=== PATIENT | male | born 1980 | race Two or more races ===

== ENCOUNTER 2016-08-25 19:11 | Emergency (ER) | payer SELFPAY ==
--- NOTE | 2016-08-25 19:28 | PHYS DOC ---
Past Medical History Past Medical History: Depression Past Surgical History: No Surgical History Alcohol Use: Heavy Additional Information: has 8 beers a day Drug Use: None Adult General Chief Complaint Chief Complaint: CHEST WALL PAIN HPI HPI Patient is a 36 year old male who presents with left-sided intermittent chest discomfort over the last month. He states that the pain is very intermittent as a pulsating sensation in might last for an hour and then it resolves by itself. He states sometimes he feels short of breath with this sometimes it radiates into the left jaw resolves by itself. Nothing makes it, on her go away. He does smoke cigarettes about a pack per day. His father just the age of 60 from heart attack. He states today his symptoms got worse. Review of Systems Review of Systems Constitutional: Denies fever or chills [] Eyes: Denies change in visual acuity, redness, or eye pain [] HENT: Denies nasal congestion or sore throat [] Respiratory: Denies cough or shortness of breath [] Cardiovascular: No additional information not addressed in HPI [] GI: Denies abdominal pain, nausea, vomiting, bloody stools or diarrhea [] : Denies dysuria or hematuria [] Musculoskeletal: Denies back pain or joint pain [] Integument: Denies rash or skin lesions [] Neurologic: Denies headache, focal weakness or sensory changes [] Endocrine: Denies polyuria or polydipsia [] Allergies Allergies Allergies Coded Allergies Type Severity Reaction Last Updated Verified No Known Drug Allergies 08/25/16 No Physical Exam Physical Exam Constitutional: Well developed, well nourished, no acute distress, non-toxic appearance. [] HENT: Normocephalic, atraumatic, bilateral external ears normal, oropharynx moist, no oral exudates, nose normal. [] Eyes: PERRLA, EOMI, conjunctiva normal, no discharge. [] Neck: Normal range of motion, no tenderness, supple, no stridor. [] Cardiovascular:Heart rate regular rhythm, no murmur [] Lungs & Thorax: Bilateral breath sounds clear to auscultation [] Abdomen: Bowel sounds normal, soft, no tenderness, no masses, no pulsatile masses. [] Skin: Warm, dry, no erythema, no rash. [] Back: No tenderness, no CVA tenderness. [] Extremities: No tenderness, no cyanosis, no clubbing, ROM intact, no edema. [] Neurologic: Alert and oriented X 3, normal motor function, normal sensory function, no focal deficits noted. [] Psychologic: Affect normal, judgement normal, mood normal. [] Current Patient Data Vital Signs Vital Signs Date Time Temp Pulse Resp B/P Pulse Ox O2 Delivery O2 Flow Rate FiO2 08/25/16 20:30 70 16 127/75 98 Room Air 08/25/16 19:15 98.2 98.2 Lab Values Laboratory Tests Test 08/25/16 19:30 08/25/16 20:28 White Blood Count 7.7x10^3/uL (4.0-11.0) Red Blood Count 4.78x10^6/uL (4.30-5.70) Hemoglobin 15.8g/dL (13.0-17.5) Hematocrit 46.8% (39.0-53.0) Mean Corpuscular Volume 98fL (79-100) Mean Corpuscular Hemoglobin 33pg (25-35) Mean Corpuscular Hemoglobin Concent 34g/dL (31-37) Red Cell Distribution Width 13.0% (11.5-14.5) Platelet Count 244x10^3/uL (140-400) Neutrophils (%) (Auto) 61% (31-73) Lymphocytes (%) (Auto) 31% (24-48) Monocytes (%) (Auto) 5% (0-9) Eosinophils (%) (Auto) 3% (0-3) Basophils (%) (Auto) 1% (0-3) Neutrophils # (Auto) 4.7x10^3uL (1.8-7.7) Lymphocytes # (Auto) 2.4x10^3/uL (1.0-4.8) Monocytes # (Auto) 0.3x10^3/uL (0.0-1.1) Eosinophils # (Auto) 0.2x10^3/uL (0.0-0.7) Basophils # (Auto) 0.1x10^3/uL (0.0-0.2) Prothrombin Time 12.5SEC (11.7-14.0) Prothrombin Time INR 1.0 (0.8-1.1) D-Dimer (Anne Marie) 0.30ug/mlFEU (0.00-0.50) Sodium Level 142mmol/L (136-145) Potassium Level 4.0mmol/L (3.5-5.1) Chloride Level 104mmol/L (98-107) Carbon Dioxide Level 30mmol/L (21-32) Anion Gap 8 (6-14) Blood Urea Nitrogen 21mg/dL (8-26) Creatinine 1.0mg/dL (0.7-1.3) Estimated GFR (Cockcroft-Gault) 85.5 Glucose Level 141mg/dL (70-99) H Calcium Level 9.3mg/dL (8.5-10.1) Magnesium Level 2.3mg/dL (1.8-2.4) Creatine Kinase 185U/L (39-308) Creatine Kinase MB (Mass) 2.5ng/mL (0.0-3.6) Creatine Kinase MB Relative Index 1.4% (0-4) Troponin I Quantitative < 0.017ng/mL (0.000-0.055) II-Arr-E-Type Natriuretic Peptide 23pg/mL (0-124) Lipase 274U/L (73-393) Urine Collection Type Void Urine Color Yellow Urine Clarity Clear Urine pH 6.0 Urine Specific [place] 1.020 Urine Protein Negativemg/dL (NEG-TRACE) Urine Glucose (UA) Negativemg/dL (NEG) Urine Ketones (Stick) Negativemg/dL (NEG) Urine Blood Negative (NEG) Urine Nitrite Negative (NEG) Urine Bilirubin Negative (NEG) Urine Urobilinogen Dipstick 1.0mg/dL (0.2 mg/dL) Urine Leukocyte Esterase Negative (NEG) Urine RBC 0/HPF (0-2) Urine WBC Occ/HPF (0-4) Urine Squamous Epithelial Cells Few/LPF Urine Bacteria 0/HPF (0-FEW) Urine Mucus Mod/LPF Laboratory Tests 08/25/16 19:30 Laboratory Tests 08/25/16 19:30 EKG EKG EKG shows normal sinus rhythm with a rate of [address] elevations or T-wave inversions, QTC 451 ms, normal axis, as interpreted by me. Radiology/Procedures Radiology/Procedures One view chest x-ray did not show any focal consolidations, pneumothorax, widened mediastinum or other concerns as interpreted by me. Impressions: Chest pain Tobacco abuse Course & Med Decision Making Course & Med Decision Making Pertinent Labs and Imaging studies reviewed. (See chart for details) EKG, labs, chest x-ray did not show any acute abnormalities. His pain is very intermittent and I do recommend to have a stress test completed. The patient does not want to stay any assigned out AMA. I did give him a referral to cardiology clinic and will have his girlfriend call to make arrangements for him to do a stress test. He is instructed return back to ER if his pain gets worse she has shortness of breath or any other concerns. His girlfriend did act as an project crew worker in this process and the patient does understand some [place]. Dragon Disclaimer Dragon Disclaimer This electronic medical record was generated, in whole or in part, using a voice recognition dictation system. Departure Departure Impression: Primary Impression: Chest pain Disposition: 01 HOME, SELF-CARE Condition: STABLE Referrals: JARAD LYMAN MD Patient Instructions: Chest Pain (Nonspecific) Additional Instructions: His EKG, chest x-ray and labs do not show any acute abnormalities. I recommend that he be admitted to the hospital and have a stress test however he does not want to stay. He will need to have a stress test as an outpatient. Please call the cardiology office and schedule appointment. She develops any other chest pain, worsening pain, difficulty breathing or has any other concerns please return back to emergency department. DIEUDONNE MILLER MD Aug 25, 2016 19:27
[2016-08-25 19:45] LABS: BASO # 0.1 x10^3/uL (0.0-0.2); BASO % 1 % (0-3); EOS % 3 % (0-3); HEMATOCRIT 46.8 % (39.0-53.0); HEMOGLOBIN 15.8 g/dL (13.0-17.5); LYMPH # 2.4 x10^3/uL (1.0-4.8); LYMPH % 31 % (24-48); MEAN CORPUSCULAR HEMOGLOBIN 33 pg (25-35); MEAN CORPUSCULAR HGB CONC 34 g/dL (31-37); MEAN CORPUSCULAR VOLUME 98 fL (79-100); MONO % 5 % (0-9); NEUT % 61 % (31-73); PLATELET COUNT 244 x10^3/uL (140-400); RED BLOOD COUNT 4.78 x10^6/uL (4.30-5.70); WHITE BLOOD COUNT 7.7 x10^3/uL (4.0-11.0)
[2016-08-25 19:55] LABS: PROTHROMBIN TIME PATIENT 12.5 SEC (11.7-14.0)
[2016-08-25 20:01] LABS: CALCIUM 9.3 mg/dL (8.5-10.1); GFR 85.5; MAGNESIUM 2.3 mg/dL (1.8-2.4)
[2016-08-25 20:13] LABS: CKMB INDEX 1.4 % (0-4); CKMB MASS 2.5 ng/mL (0.0-3.6)
[2016-08-25 20:36] LABS: BILIRUBIN,URINE NEGATIVE (NEG); GLUCOSE,URINE NEGATIVE (NEG); NITRITE,URINE NEGATIVE (NEG); PROTEIN,URINE NEGATIVE (NEG-TRACE)
[2016-08-25 20:43] LABS: RBC,URINE 0 /HPF (0-2)
[2016-08-25 20:44] LABS: BACTERIA,URINE 0 /HPF (0-FEW); SQUAMOUS EPITHELIAL CELL,UR FEW /LPF; WBC,URINE OCC /HPF (0-4)
[2016-08-25 21:20] VITALS: BP 115/74
--- NOTE | 2016-08-26 06:32 | EKG ---
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
--- NOTE | 2016-08-26 07:24 | RAD ---
Exam: AP portable chest. History: Shortness of breath. Comparison: None. Findings: The heart and mediastinal structures are within normal limits for size. Lungs are without infiltrate. No pneumothorax or pleural effusion is appreciated. Impression: 1. No acute cardiopulmonary process.
== END 2016-08-25 21:25 | disposition home or self-care (01) ==
LOC: ER 19:11
DX: R07.89 Other chest pain (principal); F17.210 Nicotine dependence, cigarettes, uncomplicated; F32.9 Major depressive disorder, single episode, unspecified; F10.10 Alcohol abuse, uncomplicated; Z82.49 Family history of ischemic heart disease and other diseases of the circulatory system
CPT/HCPCS: 36415; 71010; 80048; 81001; 82553; 83690; 83735; 83880; 84484; 85027; 85379; 85610; 93005; 99285-25

== ENCOUNTER 2016-08-27 17:21 | Emergency (ER) | payer SELFPAY ==
[2016-08-27 18:17] LABS: BASO # 0.1 x10^3/uL (0.0-0.2); BASO % 1 % (0-3); EOS % 1 % (0-3); HEMATOCRIT 44.3 % (39.0-53.0); LYMPH # 1.4 x10^3/uL (1.0-4.8); LYMPH % 19 % (24-48); MEAN CORPUSCULAR HEMOGLOBIN 33 pg (25-35); MEAN CORPUSCULAR HGB CONC 34 g/dL (31-37); MEAN CORPUSCULAR VOLUME 98 fL (79-100); MONO % 5 % (0-9); NEUT % 74 % (31-73); PLATELET COUNT 235 x10^3/uL (140-400); RED BLOOD COUNT 4.54 x10^6/uL (4.30-5.70); RED CELL DISTRIBUTION WIDTH 12.7 % (11.5-14.5); WHITE BLOOD COUNT 7.5 x10^3/uL (4.0-11.0)
[2016-08-27 18:26] LABS: CALCIUM 9.1 mg/dL (8.5-10.1); CREATININE 0.9 mg/dL (0.7-1.3); GFR 96.6; POTASSIUM 3.9 mmol/L (3.5-5.1)
[2016-08-27 19:29] VITALS: BP 128/83
[2016-08-27] MEDS ORDERED: HYDR25TA PO (19:32)
--- NOTE | 2016-08-27 19:33 | PHYS DOC ---
Past Medical History Past Medical History: Anxiety, Depression Past Surgical History: No Surgical History Alcohol Use: Heavy Drug Use: None Adult General Chief Complaint Chief Complaint: CHEST PAIN HPI HPI Patient is a 36 year old male who presents with return of symptoms he was evaluated here for 2 days. He specifically denies chest pain today. He notes getting home from work and feeling jaw pain/tingling associated with bilateral hand numbness/tingling and dyspnea. He notes these symptoms last for approx 2 hours. They have been occurring intermittently for some weeks. They usually occur when he is at home and trying to rest. He is currently asymptomatic. He denies exertional symptoms, cough, hemoptysis, palpitations, lightheadedness, headache, vision changes, back pain, abdominal pain, nausea or vomiting, fever or chills. Review of Systems Review of Systems Constitutional: Denies fever or chills [] Eyes: Denies change in visual acuity, redness, or eye pain [] HENT: Denies nasal congestion or sore throat [] Respiratory: Denies cough or shortness of breath [] Cardiovascular: No additional information not addressed in HPI [] GI: Denies abdominal pain, nausea, vomiting, bloody stools or diarrhea [] : Denies dysuria or hematuria [] Musculoskeletal: Denies back pain or joint pain [] Integument: Denies rash or skin lesions [] Neurologic: Denies headache, focal weakness or sensory changes [] Endocrine: Denies polyuria or polydipsia [] Allergies Allergies Allergies Coded Allergies Type Severity Reaction Last Updated Verified No Known Drug Allergies 08/25/16 No Physical Exam Physical Exam Constitutional: Well developed, well nourished, no acute distress, non-toxic appearance. [] HENT: Normocephalic, atraumatic, bilateral external ears normal, oropharynx moist, no oral exudates, nose normal. [] Eyes: PERRLA, EOMI. [] Neck: Normal range of motion, supple. [] Cardiovascular:Heart rate regular rhythm [] Lungs & Thorax: Bilateral breath sounds clear to auscultation [] Abdomen: Bowel sounds normal, soft, no tenderness. [] Skin: Warm, dry, no erythema, no rash. [] Back: Normal ROM. [] Extremities: No tenderness, ROM intact, no edema. [] Neurologic: Alert and oriented X 3, normal motor function, normal sensory function, no focal deficits noted. [] Psychologic: Affect normal, judgement normal, mood normal. [] Current Patient Data Vital Signs Vital Signs Date Time Temp Pulse Resp B/P Pulse Ox O2 Delivery O2 Flow Rate FiO2 08/27/16 17:35 98.6 69 14 129/83 100 Room Air 98.6 Lab Values Laboratory Tests Test 08/27/16 17:59 White Blood Count 7.5x10^3/uL (4.0-11.0) Red Blood Count 4.54x10^6/uL (4.30-5.70) Hemoglobin 15.0g/dL (13.0-17.5) Hematocrit 44.3% (39.0-53.0) Mean Corpuscular Volume 98fL (79-100) Mean Corpuscular Hemoglobin 33pg (25-35) Mean Corpuscular Hemoglobin Concent 34g/dL (31-37) Red Cell Distribution Width 12.7% (11.5-14.5) Platelet Count 235x10^3/uL (140-400) Neutrophils (%) (Auto) 74% (31-73) H Lymphocytes (%) (Auto) 19% (24-48) L Monocytes (%) (Auto) 5% (0-9) Eosinophils (%) (Auto) 1% (0-3) Basophils (%) (Auto) 1% (0-3) Neutrophils # (Auto) 5.5x10^3uL (1.8-7.7) Lymphocytes # (Auto) 1.4x10^3/uL (1.0-4.8) Monocytes # (Auto) 0.4x10^3/uL (0.0-1.1) Eosinophils # (Auto) 0.1x10^3/uL (0.0-0.7) Basophils # (Auto) 0.1x10^3/uL (0.0-0.2) Sodium Level 140mmol/L (136-145) Potassium Level 3.9mmol/L (3.5-5.1) Chloride Level 104mmol/L (98-107) Carbon Dioxide Level 29mmol/L (21-32) Anion Gap 7 (6-14) Blood Urea Nitrogen 15mg/dL (8-26) Creatinine 0.9mg/dL (0.7-1.3) Estimated GFR (Cockcroft-Gault) 96.6 Glucose Level 91mg/dL (70-99) Calcium Level 9.1mg/dL (8.5-10.1) Troponin I Quantitative < 0.017ng/mL (0.000-0.055) Laboratory Tests 08/27/16 17:59 Laboratory Tests 08/27/16 17:59 EKG EKG EKG as interpreted by me as normal sinus rhythm, rate 72, no ST-T changes, normal intervals, no ectopy Course & Med Decision Making Course & Med Decision Making Pertinent Labs and Imaging studies reviewed. (See chart for details) Workup is unremarkable, including workup from 2 days ago. Discussed his symptoms are atypical for cardiac chest pain, however he should continue with stress test that was scheduled. Discussed his symptoms could be related to anxiety/panic attacks. Discussed symptomatically management. Return precautions given. He and family understand and agree with plan. Dragon Disclaimer Dragon Disclaimer This electronic medical record was generated, in whole or in part, using a voice recognition dictation system. Departure Departure Impression: Primary Impression: Atypical chest pain Disposition: 01 HOME, SELF-CARE Condition: STABLE Referrals: NO PCP (PCP) Patient Instructions: Anxiety and Panic Attacks, [id number] Additional Instructions: You should still follow-up for your stress test. However, your symptoms could be due to panic attacks. Take hydroxyzine as needed for symptoms. Follow-up with cardiology and your primary care doctor within one week. Return for any concerns. Scripts Hydroxyzine Hcl 25 Mg Tablet1 Tab PO TID PRN ANXIETY / AGITATION #30 TAB Prov:Kat YUSUF MD 08/27/16 Kat YUSUF MD Aug 27, 2016 19:33
--- NOTE | 2016-08-28 08:29 | EKG ---
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
== END 2016-08-27 20:03 | disposition home or self-care (01) ==
LOC: ER 17:21
DX: R07.89 Other chest pain (principal); R68.84 Jaw pain; R20.0 Anesthesia of skin; F32.9 Major depressive disorder, single episode, unspecified; F41.9 Anxiety disorder, unspecified
CPT/HCPCS: 36415; 80048; 84484; 85027; 93005; 99285-25